=== PATIENT | male | born 1960 | race Caucasian/White ===

== ENCOUNTER 2018-08-24 06:53 | Day surgery (SDC) | payer OTHER ==
[~2018-08-24] VITALS: Ht 172.7 cm; Wt 56.7 kg
[~2018-08-24 06:53] MED LIST: DRIS50003 PO; FISH7.5C PO; FLOM0.4C39 PO; GABA-1171 PO; HYDR-3713 PO; ROSU20TA4 PO
[2018-08-24] MEDS ORDERED: LR 1,000 ML IV SCH ×2 (07:00→11:15)
[2018-08-24] MEDS ORDERED: CIPRODEX OTIC SUSP 7.5ML As Ordered ONE (07:05)
[2018-08-24 07:30] LABS: INR 0.95; PROTHROMBIN TIME 12.8 SECONDS (12.1-14.4)
[2018-08-24] MEDS ORDERED: PROPOFOL 200 MG/20 ML VIAL As Ordered ONE (07:58)
[2018-08-24] MEDS ORDERED: MIDAZOLAM INJ 2 MG/2 ML VIAL (J2250) As Ordered ONE (07:58)
[2018-08-24] MEDS ORDERED: dexameTHASONE 4 MG/ML 1ML VIAL (J1100) As Ordered ONE (07:58)
[2018-08-24] MEDS ORDERED: fentaNYL 250 MCG/5 ML INJECTION (J3010) As Ordered ONE (07:58)
[2018-08-24] MEDS ORDERED: LIDOCAINE 2% INJ 100 MG/5 ML SDV (FOR ANES.) As Ordered ONE (07:58)
[2018-08-24] MEDS ORDERED: ONDANSETRON 4MG/2ML VIAL (J2405) As Ordered ONE (07:58)
[2018-08-24 08:22] LABS: PARTIAL THROMBOPLASTIN TIME 27.8 SECONDS (25.4-37.6)
[2018-08-24] MEDS ORDERED: CONRAY-60 60% 50ML VIAL (Q9961) As Ordered ONE (08:38)
[2018-08-24] MEDS ORDERED: LIDOCAINE 2% 5ML JELLY UROJET As Ordered ONE (08:38)
[2018-08-24] MEDS ORDERED: ePHEDrine SULFATE 25 MG/5 ML(5MG/ML) SYRINGE As Ordered ONE ×2 (09:28→09:29)
[2018-08-24] MEDS ORDERED: PHENYLephrine HCL 500 MCG/5 ML (100MCG/ML) SYRINGE (J2370) As Ordered ONE (09:50)
--- NOTE | 2018-08-24 10:49 | REP ---
Retrograde pyelogram: Three views: History: Stent placement. Findings: A sequence of three last image hold fluoroscopically obtained spot radiographs of the abdomen document bilateral ureteral cannulation, contrast injection, and stent position. 24 seconds of fluoroscopy time is reported. Electronically Signed by Jagdish Hanna MD 08/24/2018 12:49 P
[2018-08-24] MEDS: PERCOCET 5MG/325MG TAB PO PRN ×2 (10:55→11:25)
[2018-08-24] MEDS ORDERED: PERCOCET 5MG/325MG TAB As Ordered ONE (10:55)
[2018-08-24] MEDS ORDERED: MORPHINE 10 MG/ML 1ML VIAL (J2270) IV PRN (11:15)
[2018-08-24] MEDS ORDERED: PERCOCET 5MG/325MG TAB PO PRN (11:15)
[2018-08-24] MEDS ORDERED: fentaNYL 100 MCG/2 ML INJECTION (J3010) IV PRN (11:15)
[2018-08-24] MEDS ORDERED: ONDANSETRON 4MG/2ML VIAL (J2405) IV PRN (11:15)
[2018-08-24 11:36] VITALS: BP 118/63
--- NOTE | 2018-08-24 21:19 | RO ---
DATE OF PROCEDURE: 08/24/2018 PREPROCEDURE DIAGNOSIS: Kidney stones. POSTPROCEDURE DIAGNOSIS: Kidney stones. PROCEDURE: Cystoscopy, bilateral ureteroscopy with laser lithotripsy and basket extraction of stones, bilateral retrograde pyelograms with intraoperative interpretation of images, bilateral ureteral stent placement. SURGEON: Dr. Oleg Orta REAL ESTATE SALESPERSON: None. ANESTHESIA: General. OPERATIVE INDICATIONS: This is a 57-year-old male who on recent imaging was found to have an 8 mm obstructing proximal right ureteral stone, as well as an 8 mm left kidney stone. He was brought to the operating room today for the above listed procedure. DESCRIPTION OF PROCEDURE: The patient was brought to the operating room and general anesthesia was induced. Prophylactic antibiotics were infused. He was then placed in the dorsal lithotomy position and prepped and draped in the usual sterile fashion. A rigid cystoscope was then inserted into the urethral meatus and advanced to the bladder. Once inside the bladder, a guidewire was advanced up the right collecting system. I then went up the right collecting system with a short semirigid ureteroscope and within the distal ureter, an 8 mm stone was seen. The stone was then fragmented into smaller pieces using a 200 micron laser fiber. All the fragments were then removed using a basket. I then examined the more proximal ureter and no additional stones were seen. At this point, the short semirigid ureteroscope was removed, and the ureteral access sheath was advanced up into the right collecting system. I went up the access sheath with a flexible ureteroscope and examined the kidney. No stones were seen within the kidney. At this point, a retrograde pyelogram was performed, and it was notable for moderate right hydronephrosis, no extravasation. Once that was done, the ureteroscope was removed along with the access sheath, and I then utilized the wire to advance a 6-Kyr[place]z x 22-32 cm JJ ureteral stent up to the right collecting system. The wire was then removed, and there were adequate curls of the stent in the right renal pelvis and in the bladder. I then advanced the wire up the left collecting system. I then advanced the flexible ureteroscope over the wire. I advanced an access sheath over the wire. I then went up the ureteral access sheath with a flexible ureteroscope and examined the left kidney. There was an approximately 8 to 9 mm stone seen in the lower pole of the left kidney. The stone was then repositioned with the basket. Once it was repositioned into the renal pelvis, a 200 micron laser fiber was utilized to fragment the stone into smaller pieces. All of the fragments were then removed using a basket. Once I was satisfied that all of the stones had been removed, a retrograde pyelogram was performed and was notable for mild left hydronephrosis, no extravasation. I then withdrew the ureteroscope along with the access sheath and no additional stones were seen within the ureter. I then utilized the wire to advance a 6-Kyr[place] x 22-32 cm JJ ureteral stent up to the left collecting system. The wire was then removed, and there were adequate curls of the stent in the left renal pelvis and in the bladder. At this point, the bladder was emptied of all fluids and this marked the conclusion of the procedure. The patient was then taken out of the dorsal lithotomy position, awakened from anesthesia and transported to the recovery room in stable condition. Estimated blood loss: 5 mL. Complications: None. Specimens: Kidney stone fragments. PLAN: The patient will followup in the clinic in a few weeks for stent removal.
== END 2018-08-24 12:10 | disposition home or self-care (01) ==
LOC: M SDC 06:53
PROVIDERS: ATTEND Urology
DX: N20.1 Calculus of ureter (principal); N20.0 Calculus of kidney; E78.5 Hyperlipidemia, unspecified; Z79.899 Other long term (current) drug therapy; F17.210 Nicotine dependence, cigarettes, uncomplicated; M54.5 Low back pain
CPT/HCPCS: 36415; 52356; 74420; 82360; 85610; 85730; 88300; C1769; C1894; C2617; J0690; J1100; J2250; J2370; J2405; J3010; Q9961

== ENCOUNTER 2023-02-06 11:49 | Day surgery (SDC) | payer OTHER ==
[~2023-02-06] VITALS: Ht 175.3 cm; Wt 65.0 kg
[~2023-02-06 11:49] MED LIST changes: +FISH10005 PO; -FISH7.5C PO; +LEVO25TA5 PO; +LEVO50TA5 PO; +LIDOCAINE 2% 100MG/5ML SDV (FOR ANES.) As Ordered ONE; +MELO15TA28 PO; +MIDAZOLAM INJ 2MG/2ML VIAL As Ordered ONE; +ONDANSETRON 4MG 2ML VIAL As Ordered ONE; -ROSU20TA4 PO; +ROSU20TA61 PO; +ceFAZolin SOD 2 GM in IV 1 EA IV ONE; +fentaNYL 100 MCG/2 ML INJECTION As Ordered ONE; +propofoL 200 MG/20 ML VIAL As Ordered ONE
[2023-02-06] MEDS ORDERED: LR 1,000 ML IV SCH ×2 (12:10→13:35)
[2023-02-06] MEDS ORDERED: LIDOCAINE 2% MDV 20ML VIAL As Ordered ONE (12:11)
[2023-02-06] MEDS ORDERED: ACETAMINOPHEN 1000MG 100ML IV BAG As Ordered ONE (12:37)
[2023-02-06] MEDS ORDERED: ePHEDrine SULFATE 25 MG/5 ML(5MG/ML) SYRINGE As Ordered ONE (12:37)
[2023-02-06] MEDS ORDERED: propofoL 200 MG/20 ML VIAL As Ordered ONE (12:52)
[2023-02-06] MEDS ORDERED: fentaNYL 100 MCG/2 ML INJECTION As Ordered ONE (13:07)
[2023-02-06] MEDS ORDERED: HYDR-3713 PO (13:25)
[2023-02-06] MEDS ORDERED: CEPH500C PO (13:25)
[2023-02-06] MEDS ORDERED: fentaNYL 100 MCG/2 ML INJECTION IV PRN (13:35)
[2023-02-06] MEDS ORDERED: METOCLOPRAMIDE INJ 10MG/2ML VIAL IV PRN (13:35)
[2023-02-06] MEDS ORDERED: ONDANSETRON 4MG 2ML VIAL IV PRN (13:35)
[2023-02-06] MEDS ORDERED: oxyCODONE 5MG TAB PO PRN (13:35)
[2023-02-06] MEDS ORDERED: HYDROMORPHONE HCL 0.5 MG/ 0.5 ML SYRINGE IV PRN (13:35)
[2023-02-06 14:20] VITALS: BP 143/77; TEMP 97.9; O2SAT 100
== END 2023-02-06 14:40 | disposition home or self-care (01) ==
LOC: M SDC 11:49
PROVIDERS: ATTEND Urology
DX: N43.3 Hydrocele, unspecified (principal); E78.5 Hyperlipidemia, unspecified; E03.9 Hypothyroidism, unspecified; M54.59 Other low back pain; N40.0 Benign prostatic hyperplasia without lower urinary tract symptoms; F17.210 Nicotine dependence, cigarettes, uncomplicated; F12.10 Cannabis abuse, uncomplicated; Z79.899 Other long term (current) drug therapy
CPT/HCPCS: 55040; 88302; J0131; J0665; J1100; J2250; J2405; J3010